=== PATIENT | female | born 1980 | race Caucasian/White ===

== ENCOUNTER 2022-10-29 05:28 | Day surgery (SDC) | payer MEDICAID ==
[2022-10-22 12:00] LABS: BASOPHILS # (AUTO) 0.1 X10'3 (0-0.2); BASOPHILS % (AUTO) 0.7 % (0-1); EOSINOPHILS # (AUTO) 0.1 X10'3 (0-0.9); EOSINOPHILS % (AUTO) 1.6 % (0-6); LYMPHOCYTES # (AUTO) 2.9 X10'3 (1.1-4.8); LYMPHOCYTES % (AUTO) 38.8 % (21-51); MEAN CORPUSCULAR HGB CONC 34.1 g/dL (33.0-36.5); MEAN CORPUSCULAR VOLUME 93.8 FL (78-98); MEAN PLATELET VOLUME 8.9 FL (7.4-10.4); MONOCYTES # (AUTO) 0.5 X10'3 (0-0.9); MONOCYTES % (AUTO) 6.9 % (2-12); NEUTROPHILS # (AUTO) 3.9 X10'3 (1.8-7.7); PRE OP HEMATOCRIT 43.6 % (35.0-45.0); PRE OP HEMOGLOBIN 14.9 g/dL (12.0-16.0); PRE OP PLATELET COUNT 240 X10'3 (140-440); RED BLOOD COUNT 4.65 X10'6 (4.20-5.60); RED CELL DISTRIBUTION WIDTH 14.3 % (11.5-14.5)
[2022-10-22 12:06] LABS: ALBUMIN 3.5 G/DL (3.4-5.0); ALBUMIN/GLOBULIN RATIO 0.9 (1.1-1.5); ALKALINE PHOSPHATASE 115 IU/L (46-116); BLOOD UREA NITROGEN 9 MG/DL (7-18); BUN/CREATININE RATIO 10.7 (10.0-20.0); CHLORIDE 103 MMOL/L (99-107); CREATININE 0.84 MG/DL (0.40-0.90); PRE OP ALT 37 U/L (30-65); PRE OP ANION GAP 8 (8-16); PRE OP AST 23 U/L (10-37); PRE OP BILIRUB, TOTAL 0.2 MG/DL (0.0-1.0); PRE OP GLUCOSE 93 MG/DL (70-104); PRE OP POTASSIUM 4.2 MMOL/L (3.4-5.1); PRE OP SODIUM 139 MMOL/L (135-145); TOTAL PROTEIN 7.4 G/DL (6.4-8.2); eGFR 74 ML/MIN
[2022-10-29] VITALS (9 sets, daily range): BP systolic 104–131; BP diastolic 63–71; PULSE 71–84; RESP 14–25; TEMP 97.9; O2SAT 96–99
[~2022-10-29] VITALS: Ht 167.6 cm; Wt 86.2 kg
[~2022-10-29 05:28] MED LIST: NO HOME MEDS; ringers solution, lacted 1,000 ML IV SCH
[2022-10-29] MEDS ORDERED: famotidine 20mg tablet PO ONE (05:30)
[2022-10-29] MEDS ORDERED: metoclopramide 5 mg/ml inj IV ONE (05:30)
[2022-10-29] MEDS ORDERED: vancomycin 1,500 MG in NS 300ml IV soln IV ONE (05:30)
[2022-10-29] MEDS ORDERED: celeCOXIB 100mg capsule PO ONE (05:30)
[2022-10-29] MEDS ORDERED: tranexamic acid inj. 1,000 MG in normal saline IV soln 100ML IV ONE (05:30)
[2022-10-29] MEDS ORDERED: ROPIVAcaine 0.5% (5mg/ml) 30ml vial ONE (07:01)
[2022-10-29] MEDS ORDERED: sevoflurane 250ml liquid IH ONE (07:37)
[2022-10-29] MEDS ORDERED: fentaNYL/PF 50MCG/1 ML 2ML syringe ONE (07:44)
[2022-10-29] MEDS ORDERED: midazolam 1 mg/ML 2ml injection ONE (07:56)
[2022-10-29] MEDS ORDERED: LIDOcaine 2% (20mg/ml) 5ml vial ONE (07:56)
[2022-10-29] MEDS ORDERED: propofol inj 20 ML IV ONE (07:56)
[2022-10-29] MEDS ORDERED: dexamethasone sod phosphate 4mg/ml inj. ONE (07:58)
[2022-10-29] MEDS ORDERED: ondansetron/PF 4mg/2ml inj ONE (07:58)
[2022-10-29] MEDS ORDERED: ringers solution, lacted 1,000 ML IV SCH (08:45)
[2022-10-29] MEDS ORDERED: ondansetron/PF 4mg/2ml inj IV PRN (08:45)
[2022-10-29] MEDS ORDERED: proCHLORperazine 10 MG/2 ml inj IV PRN (08:45)
[2022-10-29] MEDS ORDERED: hydrALAZINE 20mg/ml inj. IV PRN (08:45)
[2022-10-29] MEDS ORDERED: labetalol 20mg/4ml (5mg/ml) syringe IV PRN (08:45)
[2022-10-29] MEDS ORDERED: HYDROmorphone/PF 0.2 MG/ML SYRINGE IV PRN ×2 (08:45)
[2022-10-29] MEDS ORDERED: fentaNYL/PF 50MCG/1 ML 2ML syringe IV PRN ×2 (08:45)
--- NOTE | 2022-10-29 08:45 | NUR ---
Received from OR via , accompanied by Anesthesiologist DR RIZVI and report given by Anesthesiolgist. VSS MASK AT 8 LITERS AT 99%. DRESSING ON LEFT HIP AND IV IN L HAND 20G NO ISSUES. LR AT 100ML/HR Addendum: 10/29/22 at 0914 by Anna Monroy RN Amended: Links added.
[2022-10-29] MEDS ORDERED: HYDROmorphone 1 mg/ml syringe ONE (09:02)
--- NOTE | 2022-10-29 09:45 | NUR ---
PATIENT MEETS DISCHARGE CRITERIA. VSS. IV DC'D WITH NO ISSUES. DRESSING CDI. PATIENT HAD HER GLASSES AND CELL PHONE WITH HER WHEN I WHEELED HER TO HER 'S CAR. Addendum: 10/29/22 at 1012 by Anna Monroy RN Amended: Links added.
== END 2022-10-29 09:45 | disposition home or self-care (01) ==
LOC: PAS 05:28
PROVIDERS: ATTEND Orthopaedic Surgery
DX: T84.84XA Pain due to internal orthopedic prosthetic devices, implants and grafts, initial encounter (principal); G89.29 Other chronic pain; M19.90 Unspecified osteoarthritis, unspecified site; G40.209 Localization-related (focal) (partial) symptomatic epilepsy and epileptic syndromes with complex partial seizures, not intractable, without status epilepticus; E78.5 Hyperlipidemia, unspecified; E66.8 Other obesity; Z68.31 Body mass index [BMI] 31.0-31.9, adult; Z87.891 Personal history of nicotine dependence; Z90.710 Acquired absence of both cervix and uterus; Z98.890 Other specified postprocedural states; Z88.1 Allergy status to other antibiotic agents; Z88.8 Allergy status to other drugs, medicaments and biological substances; Z88.5 Allergy status to narcotic agent; Y83.8 Other surgical procedures as the cause of abnormal reaction of the patient, or of later complication, without mention of misadventure at the time of the procedure; Y92.89 Other specified places as the place of occurrence of the external cause
CPT/HCPCS: 20680; 36415; 73501; 80053; 82948; 85025; J1100; J1170; J2250; J2405; J2704; J2765; J2795; J3010; J3370; J3490; J7030; J7120; Z7506; Z7508; Z7512; 76000; A4618; A7000

== ENCOUNTER 2024-02-24 22:37 | Emergency (ER) | payer MEDICAID ==
[~2024-02-24] VITALS: Ht 170.2 cm; Wt 95.0 kg
[~2024-02-24 22:37] MED LIST changes: -ringers solution, lacted 1,000 ML IV SCH
[2024-02-24 22:39] VITALS: BP 139/74; PULSE 85; RESP 22; TEMP 97.9; O2SAT 99
[2024-02-24] MEDS: diazepam inj 5 MG/ML inj. IV ONE (23:06)
[2024-02-24] MEDS: ketorolac trometh 30MG/ML vial 30 MG/ML VIAL IV ONE (23:06)
[2024-02-24 23:20] LABS: ALANINE AMINOTRANSFERASE 8 U/L (12-78); ALBUMIN 3.3 G/DL (3.4-5.0); ALKALINE PHOSPHATASE 69 IU/L (46-116); ANION GAP 7 (8-16); ASPARTATE AMINO TRANSFERASE 12 U/L (10-37); BILIRUBIN,TOTAL 0.3 MG/DL (0.1-1.0); BLOOD UREA NITROGEN 11 MG/DL (7-18); BUN/CREATININE RATIO 12.5 (10.0-20.0); CALCIUM 8.6 MG/DL (8.5-10.1); CHLORIDE 109 MMOL/L (99-107); CREATININE 0.88 MG/DL (0.40-0.90); GLUCOSE 103 MG/DL (70-104); POTASSIUM 3.9 MMOL/L (3.5-5.1); SODIUM 143 MMOL/L (135-145); TOTAL CARBON DIOXIDE 27.1 MMOL/L (24-32); TOTAL PROTEIN 6.6 G/DL (6.4-8.2); eCRCL 79 ML/MIN; eGFR 70 ML/MIN
[2024-02-24 23:23] LABS: BASOPHILS # (AUTO) 0.1 X10'3 (0-0.2); BASOPHILS % (AUTO) 0.6 % (0-1); EOSINOPHILS # (AUTO) 0.2 X10'3 (0-0.9); EOSINOPHILS % (AUTO) 1.8 % (0-6); HEMATOCRIT 39.2 % (35.0-45.0); HEMOGLOBIN 13.4 g/dl (12.0-16.0); LYMPHOCYTES % (AUTO) 41.7 % (21-51); MEAN CORPUSCULAR HEMOGLOBIN 33.1 PG (27.0-31.0); MEAN CORPUSCULAR HGB CONC 34.3 g/dL (33.0-36.5); MEAN CORPUSCULAR VOLUME 96.6 FL (78-98); MEAN PLATELET VOLUME 8.6 FL (7.4-10.4); MONOCYTES # (AUTO) 0.7 X10'3 (0-0.9); MONOCYTES % (AUTO) 7.7 % (2-12); NEUTROPHILS # (AUTO) 4.6 X10'3 (1.8-7.7); NEUTROPHILS % (AUTO) 48.2 % (42-75); PLATELET COUNT 279 X10'3 (140-440); RED BLOOD COUNT 4.06 X10'6 (4.20-5.60); RED CELL DISTRIBUTION WIDTH 13.9 % (11.5-14.5); WHITE BLOOD COUNT 9.6 X10'3 (4.5-11.0)
[2024-02-24 23:29] LABS: PRO BRAIN NATRIURETIC PEPTIDE 53 PG/ML (0-125)
[2024-02-25] MEDS ORDERED: iohexol 350MG/ML 100ml bottle IV ONE (00:21)
== END 2024-02-25 03:22 | disposition left against medical advice (07) ==
LOC: ER 22:38
DX: R07.89 Other chest pain (principal); M25.512 Pain in left shoulder; F17.210 Nicotine dependence, cigarettes, uncomplicated; I25.2 Old myocardial infarction; Z88.1 Allergy status to other antibiotic agents; Z88.5 Allergy status to narcotic agent; Z88.8 Allergy status to other drugs, medicaments and biological substances
CPT/HCPCS: 36415; 71045; 71275; 80053; 83880; 84484; 85025; 93005; 96374; 96375; 99285; J1885; J3360; Q9967